=== PATIENT | male | born 1970 | race African-American/Black ===

== ENCOUNTER 2018-06-08 13:47 | Emergency (ER) | payer MEDICAID ==
[~2018-06-08] VITALS: Ht 167.6 cm; Wt 104.3 kg
[2018-06-08] MEDS ORDERED: TRIUMEQ 600-501 EACH PO (13:53)
[2018-06-08] MEDS ORDERED: Bacitracin Oint UD TOPIC ONE (14:15)
--- NOTE | 2018-06-08 14:20 | Emergency Room Report ---
History of Present Illness General Chief Complaint: Skin Rash/Abscess Source: Patient Present Illness HPI 48-year-old male patient presents the ER brought in by EMS complaining of left foot pain. States pain is been present for the past few hours. Reports posterior on the bottom of the foot that formed following getting a new pair shoes that "did not feel right". Reports blister popped today. Reports blister was present for the past 2 weeks and growing in size. Also complaining of rash all over his body. States that he was staying in a motel room for night and when he came into contact with the mattress he noticed this rash the next day. Reports rash all over his body. Reports intensely pruritic. Denies fever, chest pain, shortness of breath. Reports history of diabetes, states type II diabetes, states has not taken medications for diabetes, states currently well controlled through diet. Also reports history of HIV. States had it monitored while incarcerated, does not know results. States not currently taking medications. Allergies: Coded Allergies: No Known Allergies (Unverified , 06/08/18) Patient History Past Medical History: see triage record Reviewed Nursing Documentation: PMH: Agreed; PSxH: Agreed Nursing Documentation-PMH Past Medical History: No History, Except For Review of Systems All Other Systems: negative except mentioned in HPI Physical Exam Vital Signs Date Time Temp Pulse Resp B/P (MAP) Pulse Ox O2 Delivery O2 Flow Rate FiO2 06/08/18 13:43 98.2 90 17 152/102 98 Room Air Sp02 EP Interpretation: reviewed, normal General Appearance: well appearing, no apparent distress, alert, GCS 15, non- toxic Head: normocephalic, atraumatic Eyes: bilateral eye normal inspection, bilateral eye PERRL ENT: hearing grossly normal, normal pharynx, no angioedema, normal voice, uvula midline, moist mucus membranes Respiratory: lungs clear, normal breath sounds, no rhonchi, no respiratory distress, no accessory muscle use, no wheezing, speaking full sentences Cardiovascular #1: regular rate, rhythm, no edema Cardiovascular #2: 2+ dorsalis pedis (R), 2+ dorsalis pedis (L) Musculoskeletal: back normal, digits/nails normal, gait/station normal, normal range of motion, non-tender, no calf tenderness, Shannon's Sign negative Psychiatric: mood/affect normal Skin: rash - Maculopapular rash on left upper extremity and diffusely on abdomen consistent with scabies , no vesicles, no weeping lesions, other - plantar aspect of left foot: Unroofed vesicle on dorsum of left foot, dried blood noted, surrounding erythema or edema Medical Decision Making PA Attestation Dr. Nicholson is my supervising Physician whom patient management has been discussed with. Diagnostic Impression: Primary Impression: Rash and other nonspecific skin eruption Additional Impression: Blister ER Course Pt. presents to the ED c/o rash and blister on bottom of left foot. Ddx considered but are not limited to atopic dermatitis, scabies, shingles, hives, urticaria, angiodema, allergic reaction, impetigo. Vital signs: are WNL, pt. is afebrile Ordered medication. ER COURSE Plantar aspect of left foot shows blister. Likely due to mechanical trauma. Cleaned and dressed, bacitracin applied. Informed patient of her lips fitting shoes. No signs of infection, no erythema or edema, does not require antibiotics at this time. Keep clean and dry. Rash on body consistent with likely scabies. Provided patient with permethrin cream in the ER. Advised to use to apply to the entire body keep on for 8-12 hours, reapply in 1 week. Wash and clean all clothes and bedding. Benadryl for itching symptoms. ER precautions given. Provide patient with resources and contact information for HIV clinic. Follow- up discuss monitoring and HIV medication. Patient seen and evaluated by Dr. Nicholson, agrees with assessment treatment plan. DISCHARGE: At this time pt. is stable for d/c to home. Patient resting comfortably, in no acute distress, nontoxic appearing. Will provide printed patient care instructions, and any necessary prescriptions. Care plan and follow up instructions have been discussed with the patient prior to discharge. Patient provided with list of healthcare clinics to establish primary care physician. Patient instructed to follow-up with primary care provider in 3 - 5 days. Patient questions asked and answered. ER precautions given. Patient instructed to return to ER immediately for any new or worsening of symptoms including but not limited to increasing SOB, persistent fever. - Please note that this Emergency Department Report was dictated using [employer] technology software, occasionally this can lead to erroneous entry secondary to interpretation by the dictation equipment. Last Vital Signs Date Time Temp Pulse Resp B/P (MAP) Pulse Ox O2 Delivery O2 Flow Rate FiO2 06/08/18 13:43 98.2 90 17 152/102 98 Room Air Disposition: HOME, SELF-CARE Condition: Stable Patient Instructions: Blisters, Scabies, Pediatric Additional Instructions: Followup with primary care provider in 1-2 days. Discuss HIV medications at that time. Request referral to dermatology as needed. Do not scratch or itch. Apply cool compresses to affected area. Wash all clothes and bedding. Take medications as directed. Wear comfortable, loose fitting shoes. Keep clean and dry. Apply topical bacitracin to affected area. SE Benadryl drowsiness, do not take prior to drinking, driving, operating heavy machinery. Take Claritin during the day and Benadryl at night for itching symptoms. Follow-up with HIV clinic for further monitoring and treatment of HIV. Patient questions asked and answered. ER precautions given, patient instructed to return to ER immediately for any new or worsening of symptoms. [facility] Ángel Gonzalez Jun 08, 2018 14:19
[2018-06-08 14:34] VITALS: BP 152/102
[2018-06-08 15:37] VITALS: BP 152/102
== END 2018-06-08 15:47 | disposition home or self-care (01) ==
LOC: EDBD 13:47 → EMR 14:53
DX: R21 Rash and other nonspecific skin eruption (principal); R23.8 Other skin changes
CPT/HCPCS: 99282